=== PATIENT | male | born 1990 | race Caucasian/White ===

== ENCOUNTER 2023-02-26 08:40 | Emergency (ER) | payer OTHER, BC, SELFPAY ==
[2023-02-26 08:46] VITALS: BP 147/92; PULSE 86; RESP 16; TEMP 36.7; O2SAT 99; BMI 25.1
--- NOTE | 2023-02-26 09:04 | ED_ITS ---
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 No loss of consciousness, he did not see stars, denies any neck pain or injury, felt he was a little dazed at the start, but feels back to baseline at the current time. No previous history of head injury, is on no anticoagulants, denies any nausea, vomiting, vision issues, numbness and tingling weakness, and otherwise feels good. No chronic medications, no allergies, MD Complaint: head injury Onset (ago): hour(s) (1) Mechanism of Injury: work related injury Place: work Loss of Consciousness: no Location of injury: parietal Severity: mild Quality: dull Radiation: none Other Injuries: none Associated symptoms: denies other symptoms Related Data Home Medications Medication Instructions Recorded Confirmed No Known Home Medications 02/26/23 02/26/23 Allergies Allergy/AdvReac Type Severity Reaction Status Date / Time No Known Drug Allergies Allergy Verified 02/26/23 08:52 Review of Systems Status of ROS: Reports: 10 or more systems reviewed and unremarkable except as noted in History and below [facility] Social History Smoking Status: Never smoker Do you use any of these nicotine containing products: None How often do you have a drink containing alcohol: 2-3 times a week AUDIT-C Alcohol total score: 3 Non-prescribed substance use: denies use service: No Exam Narrative: Exam Narrative: Patient is speaking normally, no problem with slurring words, oriented x3. Head eyes ears nose and throat exam show equal pupils, no scleral icterus, extraocular muscles are normal, no facial droop, speech is normal, trachea normal and midline. Thyroid normal midline palpable, not enlarged. Upper and lower extremities show normal power, normal range of motion, pulses are normal, sensations normal, fine motor movements are normal,. Cervical spine shows normal range of motion, and palpably not tender. . Skin shows no rashes, petechiae or eccymosis. On the top of his head there is an area of small redness there is no bogginess, no laceration, no significant hematoma, or really injury noted. 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 Const: Vital Signs, click to edit/add: Vital Signs - 24 hr 02/26/23 08:46 Temperature 98.0 F Pulse Rate [Right Pulse Oximeter] 86 Respiratory Rate 16 Blood Pressure [Ri ght Upper Arm] 147/92 H Pulse Oximetry 99 Oxygen Delivery Me thod Room Air Course Course Hospital Course: Discussed with the patient that he has had a mild head injury, given what I see I do not think he needs CT scanning. I think Tylenol, light duty today, and he will be able go back to work. I discussed with him, that his tetanus status is up-to-date. We do not need to update this here. To return if signs symptoms of worsening condition occur, which we discussed in detail. Vital Signs Vital signs: Initial Vital Signs Temperature 98.0 F 02/26/23 08:46 Temperature Source Temporal Artery Scan 02/26/23 08:46 Pulse Rate 86 02/26/23 08:46 Respiratory Rate 16 02/26/23 08:46 Blood Pressure 147/92 H 02/26/23 08:46 Blood Pressure Mean 110 H 02/26/23 08:46 Blood Pressure Position Sitting 02/26/23 08:46 Pulse Oximetry 99 02/26/23 08:46 Oxygen Delivery Method Room Air 02/26/23 08:46 Vital Signs Temperature 98.0 F 02/26/23 08:46 Pulse Rate 86 02/26/23 08:46 Respiratory Rate 16 02/26/23 08:46 Blood Pressure 147/92 H 02/26/23 08:46 Pulse Oximetry 99 02/26/23 08:46 Oxygen Delivery Method Room Air 02/26/23 08:46 Temperature 98.0 F 02/26/23 08:46 Pulse Rate 86 02/26/23 08:46 Respiratory Rate 16 02/26/23 08:46 Blood Pressure 147/92 H 02/26/23 08:46 Pulse Oximetry 99 02/26/23 08:46 Oxygen Delivery Method Room Air 02/26/23 08:46 MDM - Head Injury MDM Narrative Medical decision making narrative: Life-threatening differential diagnosis is considered include: Subarachnoid hemorrhage, subdural hemorrhage, epidural hemorrhage. Other differential diagnosis considered include concussion, closed head injury, or neck fracture. Medical Records Attestation: I reviewed the patient's medical records. 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 Note for work written Activity Level: Light activity Prescriptions: No Action No Known Home Medications Stand Alone Forms: [employer] Info Instructions
== END 2023-02-26 09:34 | disposition home or self-care (01) ==
PROVIDERS: Emergency Provider Family Medicine
DX: S09.90XA Unspecified injury of head, initial encounter (principal); W20.8XXA Other cause of strike by thrown, projected or falling object, initial encounter; Y99.0 Civilian activity done for income or pay
CPT/HCPCS: 99282; 99283